=== PATIENT | male | born 1970 | race Caucasian/White ===

== ENCOUNTER 2020-05-15 09:39 | Emergency (ER) | payer SELFPAY ==
[2020-05-15 09:40] VITALS: BP 97/57; PULSE 133; RESP 18; TEMP 36.7; O2SAT 93; BMI 28.1
[2020-05-15] MEDS: sodium chloride 0.9% 1,000 ML 999 ML IV (09:40)
--- NOTE | 2020-05-15 09:53 | ECG_ITS ---
[facility] Test Date: 2020-05-15 Pat Name: Salvador Alvarado Department: Room: Gender: Male Field Account Director: : 1970 Requested By: Artemio Hammond Order Number: [id number] Herzog MD: Xiomara Johnson M.D. Measurements Intervals [place] Rate: 114 P: 34 NM: 143 QRS: 78 QRSD: 100 T: 19 QT: 328 QTc: 453 Interpretive Statements SINUS TACHYCARDIA ABNORMAL RHYTHM ECG No previous ECG available for comparison Electronically Signed On 05-15-2020 19:28:43 COMPUTER AIDED DESIGN DRAFTER by Xiomara Johnson M.D. [email or web address]
[2020-05-15 09:55] VITALS: PULSE 119; RESP 20; O2SAT 89; O2SAT 93
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
[2020-05-15 10:12] VITALS: BP 97/57; PULSE 114; RESP 19; O2SAT 91; O2SAT 95
[2020-05-15 10:15] VITALS: PULSE 109; RESP 20; O2SAT 94
[2020-05-15 10:17] VITALS: BP 108/66; PULSE 112; RESP 20; O2SAT 94
--- NOTE | 2020-05-15 10:17 | PC.NURSE ---
Pt given 1 unit emergent, non-crossmatched blood. Unit [id number] O neg blood started 1017. See VS flow sheet for VS.
--- NOTE | 2020-05-15 10:18 | PC.NURSE ---
this nurse increased supplemental oxygen to 4L per nasal cannula.
[2020-05-15] MEDS: ceFAZolin 1,000 MG in sodium chloride 0.9% (plus) 50 ML 100 MG IV (10:25)
[2020-05-15] MEDS: sodium chloride 0.9% (100 ml) 100 ML 999 ML (10:26)
[2020-05-15 10:27] VITALS: BP 120/70; PULSE 110; RESP 19; O2SAT 94
[2020-05-15 10:30] LABS: Basophils # 0.1 10^3/uL (0.0-0.1); Basophils % 0.4 %; Hematocrit 43.3 % (42.0-52.0); Hemoglobin 14.6 g/dL (11.7-16.6); Lymphocytes # 1.4 10^3/uL (0.8-4.8); Mean Corpuscular HGB Conc 33.7 g/dL (30.0-36.0); Mean Corpuscular Hemoglobin 32.9 pg (28.0-34.0); Mean Corpuscular Volume 97.5 fL (80-94); Mean Platelet Volume 10.3 fL (7.4-10.4); Monocytes # 1.8 10^3/uL (0.2-0.9); Monocytes % 6.3 %; Neutrophils # 24.91 10^3/uL (1.8-7.7); Neutrophils % 87.4 %; Nucleated Red Blood Cells % 0 %; Platelet Count 214 10^3/cmm (130-400); Red Blood Count 4.44 10^6/uL (4.1-5.3); Red Cell Distribution Width 12.5 % (12.1-15.1); White Blood Count 28.5 10^3/uL (4.0-10.0)
--- NOTE | 2020-05-15 10:43 | PC.NURSE ---
1st Unit RBCs complete at this time.
[2020-05-15 10:58] LABS: Alanine Aminotransferase 21 U/L (0-41); Albumin Level 3.4 g/dL (3.5-5.2); Alcohol Level 89 mg/dL (0-10); Alkaline Phosphatase 94 IU/L (40-130); Blood Urea Nitrogen 18 mg/dL (6-20); Calcium 8.1 mg/dL (8.5-10.5); Chloride 97 mmol/L (98-107); Globulin 2.4 g/dL (1.3-4.6); Glomerular Filtration Rate 30.4 mL/min (90-130); Glucose 130 mg/dL (65-115); Osmolality Calculated 284 mOsm/kg (285-295); Sodium 135 mmol/L (136-145); Total Bilirubin 0.3 mg/dL (0.15-1.2); Total Protein 5.8 g/dL (6.6-8.7)
--- NOTE | 2020-05-15 11:01 | PC.NURSE ---
emergent O- blood *1 unit sent with air evac.
[2020-05-15 11:33] LABS: Anion Gap 32.2 (5-19); Aspartate Amino Transferase 23 U/L (0-40); Potassium 3.2 mmol/L (3.5-5.1)
[2020-05-15 11:35] LABS: Carbon Dioxide 9 mmol/L (22-29)
== END 2020-05-15 11:00 ==
PROVIDERS: Emergency Provider Family Medicine
DX: S51.812A Laceration without foreign body of left forearm, initial encounter (principal); S11.91XA Laceration without foreign body of unspecified part of neck, initial encounter; X78.1XXA Intentional self-harm by knife, initial encounter
CPT/HCPCS: 36415; 71045; 80053; 80307; 85025; 86850; 86900; 86920; 93005; 99291; J0690; J7030; P9016